=== PATIENT | male | born 1965 | race African-American/Black ===

== ENCOUNTER 2019-09-26 06:20 | Outpatient (CLI) | payer MEDICARE, OTHER ==
[2019-09-26 14:02] LABS: Mean Corpuscular HGB CONC 33.4 g/dL (32.0-36.0); Mean Corpuscular Hemoglobin 29.9 pg (27.0-31.0); Mean Corpuscular Volume 89.6 fL (78.0-98.0); Mean Platelet Volume 8.2 fL (7.4-10.4); Platelet Count 357 thou/uL (130-400); RBC Distribution Width 12.2 % (11.5-14.5); Red Blood Cell (RBC) Count 5.01 mill/uL (4.70-6.10); White Blood Cell (WBC) Count 5.7 thou/uL (4.8-10.8)
[2019-09-26 14:24] LABS: Anion Gap 12 mmol/L (10-20); BUN (Urea Nitrogen) 11 mg/dL (8.4-25.7); Calc. Creatinine Clearance 0 mL/min (70-130); Calcium 9.3 mg/dL (7.8-10.44); Carbon Dioxide 24 mmol/L (22-29); Chloride 107 mmol/L (98-107); Estimated GFR-MDRD 90; Glucose 147 mg/dL (70-105); Potassium 4.2 mmol/L (3.5-5.1); Sodium 139 mmol/L (136-145)
[2019-09-27 14:39] LABS: SARS-CoV-2 MS2 Positive; SARS-CoV-2 N Gene Negative; SARS-CoV-2 S Gene Negative; SARS-CoV-2 orf1ab Negative
== END 2019-09-26 06:21 | disposition home or self-care (01) ==
LOC: LABBT 06:20
PROVIDERS: ATTEND Neurological Surgery
DX: Z01.818 Encounter for other preprocedural examination (principal); Z11.59 Encounter for screening for other viral diseases; M48.062 Spinal stenosis, lumbar region with neurogenic claudication
CPT/HCPCS: 80048; 85027; 93005; U0003; 87635; 93010

== ENCOUNTER 2019-09-26 11:30 | Inpatient (IN) | payer MEDICARE, OTHER ==
[2019-09-24 11:18] VITALS: BMI 36.6
[2019-10-01] MEDS ORDERED: Fentanyl 100 MCG/2 ML VIAL ONE ×4 (08:04→12:25)
[2019-10-01] MEDS ORDERED: Midazolam HCl 2 mg/2 ml Vial ONE (08:05)
[2019-10-01] MEDS ORDERED: Lidocaine 1% PF 5 ML VIAL ONE (09:48)
[2019-10-01] MEDS ORDERED: Glycopyrrolate 0.2 MG/ML 5 ML SYRINGE ONE (09:48)
[2019-10-01] MEDS ORDERED: EPHEDRINE 25 MG/5 ML SYRINGE ONE (09:48)
[2019-10-01] MEDS ORDERED: Dexamethasone 20 MG/5 ML VIAL ONE (09:48)
[2019-10-01] MEDS ORDERED: Ondansetron PF 4 MG/2 ML Vial ONE (09:48)
[2019-10-01] MEDS ORDERED: Rocuronium Bromide 10 MG/ML (10ML VIAL) ONE (09:48)
[2019-10-01] MEDS ORDERED: PROPOFOL 200 MG/20 ML VIAL ONE (09:48)
[2019-10-01] MEDS ORDERED: Promethazine HCl 25 MG/ML VIAL SLOW IVP PRN (11:31)
[2019-10-01] MEDS ORDERED: PACU-Morphine 4MG/ML VIAL SLOW IVP PRN (11:31)
[2019-10-01] MEDS ORDERED: Promethazine HCl 25 MG/ML VIAL IM PRN ×2 (11:31→14:32)
[2019-10-01] MEDS ORDERED: Morphine Sulfate 2 MG/ML SYRINGE SLOW IVP PRN (11:31)
[2019-10-01] MEDS ORDERED: HYDROmorphone 2 MG/ML VIAL SLOW IVP PRN (11:31)
[2019-10-01] MEDS ORDERED: Ondansetron HCl/PF 4 MG/2 ML Vial IVP PRN (11:31)
--- NOTE | 2019-10-01 11:56 | OP ---
DATE OF PROCEDURE: 10/01/2019 RESORT HOST: Steffanie Ramirez PA-C PROCEDURES PERFORMED: 1. Removal of hardware L4 through S1. 2. Exploration of spinal fusion L4 through S1. 3. Lumbar laminectomy, L3-4. 4. Posterolateral arthrodesis, L3-4. 5. Pedicle screw instrumentation. 6. Demineralized bone matrix. 7. Local morselized autograft, L3-4. DESCRIPTION OF PROCEDURE: After the patient was brought and intubated, he was rolled in a prone position on gel-filled chest rolls. The previous incision was reopened and extended superiorly exposing L3 through the sacrum. We removed the previous nuts and rods from L4 through S1. We explored the spinal fusion and appeared to be solid. We next performed complete L4, inferior L3 laminectomies completely decompressing L3-4. Once complete decompression was secured, pedicle screws were placed at L3 bilaterally and secured to pre-existing screws at L4 using a anthony. These were connected by nuts, which were final tightened. The wound was extensively irrigated and MAC hemostasis was secured. A combination of demineralized bone matrix and local morselized autograft was laid over the lamina on posterolateral surfaces for the purpose of arthrodesis. Vancomycin powder was applied and the wound was closed in anatomic layers over drain. Job ID: [id number]
[2019-10-01] MEDS ORDERED: diphenhydrAMINE 25 MG CAP PO PRN (14:32)
[2019-10-01] MEDS ORDERED: tiZANidine HCl 4 MG TAB PO PRN (14:32)
[2019-10-01] MEDS ORDERED: Morphine 2 MG/ML VIAL SLOW IVP PRN (14:32)
[2019-10-01] MEDS ORDERED: Mag-Al 1200 mg/1200 mg/30 ML UDCUP PO PRN (14:32)
[2019-10-01] MEDS ORDERED: Promethazine HCl 12.5 MG SUPP PR PRN (14:32)
[2019-10-01] MEDS ORDERED: Milk Of Magnesia 30 ML UDCUP PO PRN (14:32)
[2019-10-01] MEDS ORDERED: Ondansetron PF 4 MG/2 ML Vial IM PRN (14:32)
[2019-10-01] MEDS ORDERED: diphenhydrAMINE 50 MG/ML VIAL IVP PRN (14:32)
[2019-10-01] MEDS ORDERED: Promethazine 25 MG TAB PO PRN (14:32)
[2019-10-01] MEDS ORDERED: Methyl Salicylate/Menthol 85 GM TUBE TOP PRN (14:43)
[2019-10-01] MEDS: oxyCODONE/Acetaminophen 5 mg/325 mg Tablet PO PRN (15:00)
--- NOTE | 2019-10-01 15:25 | PDOC.HOSPP ---
- Subjective Encounter Date: 10/01/19 Encounter Time: 15:25 Subjective: Patient seen and examined for med mngt. No new complaints. No overnight events - Objective Vital Signs & Weight: Weight Weight 270 lb Hospitalist ROS - Medication Medications: Active Medications Generic Name Dose Route Start Last Admin Trade Name Freq PRN Reason Stop Dose Admin Oxycodone/Acetaminophen 1 tab 10/01/19 14:35 10/01/19 15:00 Percocet 5/325 PO 1 tab Q8H PRN Administration Pain
--- NOTE | 2019-10-01 15:31 | PDOC.HHP ---
Hospitalist HPI - History of Present Illness Consult for medical mngt History of Present Illness: Dustin Isaacs is a 54 year old male underwent lumbar surgery earlier today. Hospitatlist team is being consulted for medical management on his current conditions. He rates his back pain as 7/10 and his neck pain as 5/10. He says his lower back pain and neck pain started in early 1999. He attributes the lower back pain and neck pain from his rigorous training. Reports no SOB, palpitations, wheezing and chest pain. The patient has no allergies to medications. The patient does not drink, does not smoke and does not use illicit drugs. He states he exercises on a regular basis and has a fair diet. Hospitalist ROS - Review of Systems Constitutional: reports: weakness. denies: fever, chills, sweats, malaise ENT: denies: ear pain, ear discharge, nose pain, nose discharge, nose congestion , mouth pain, mouth swelling, throat pain, throat swelling, other Respiratory: denies: cough, dry, shortness of breath, hemoptysis, SOB with excertion, pleuritic pain, sputum, wheezing, other Cardiovascular: denies: chest pain, palpitations, orthopnea, paroxysmal noc. dyspnea, edema, light headedness, other Gastrointestinal: denies: nausea, vomiting, abdominal pain, diarrhea, constipation, melena, hematochezia, other Musculoskeletal: reports: neck pain, back pain. denies: shoulder pain, arm pain , hand pain, leg pain, foot pain Skin: denies: rash, lesions, sorin, bruising, other Neurological: denies: weakness, numbness, incoordination, change in speech, confusion, seizures, other All other systems reviewed; all pertinent +/- noted in HPI/Subj - Medication Medications: Active Medications Generic Name Dose Route Start Last Admin Trade Name Freq PRN Reason Stop Dose Admin Oxycodone/Acetaminophen 1 tab 10/01/19 14:35 10/01/19 15:00 Percocet 5/325 PO 1 tab Q8H PRN Administration Pain Ambulatory Orders Gabapentin 800 mg PO QID 09/24/19 Propranolol HCl [Inderal LA] 60 mg PO DAILY 09/24/19 Other home meds reviewed Hospitalist History - Past Medical History Cardiac: reports: HTN Psych: reports: Other (PTSD diagnosed in 2014) - Exam General Appearance: awake alert Eye: PERRL ENT: normocephalic atraumatic, no oropharyngeal lesions, moist mucosa Neck: supple, symmetric, no JVD, no thyromegaly, no lymphadenopathy, no carotid bruit Heart: RRR, no murmur, no gallops, no rubs, normal peripheral pulses Respiratory: CTAB, no wheezes, no rales, no ronchi, normal chest expansion, no tachypnea, normal percussion Gastrointestinal: soft, non-tender, non-distended, normal bowel sounds, no palpable masses, no hepatomegaly, no splenomegaly, no bruit, no guarding, no rigidity Extremities: no cyanosis, no clubbing, no edema Skin: normal turgor, no lesions, no rashes Psychiatric: normal affect, normal behavior, A&O x 3, oriented to person, oriented to place, oriented to time Hospitalist Results - Labs Lab results: Laboratory Tests 09/26/19 09/26/19 09/26/19 11:31 11:31 11:31 WBC 5.7 Hgb 15.0 Hct 44.9 Plt Count 357 Sodium 139 Potassium 4.2 Chloride 107 BUN 11 Creatinine 1.04 COVID-19 PCR Not Detected - EKG Interpretation EKG: SR (Reviewed by me) Hospitalist H&P A/P - Plan Plan: HTN Chronic pain syndrome CKD 2 Anxiety/PTSD GERD Obesity BMI 36.6 KAILEY on CPAP PLAN: Resume Inderal Resume Zoloft Cont Remeron Cont Gabapentin Resume H2 blockers Pain control PT/OT DVT prophylaxis IS Thank you for this consultation. Will follow.
[2019-10-01] MEDS: Morphine 4 MG/ML VIAL SLOW IVP PRN ×2 (15:42→18:26)
[2019-10-01] MEDS: Sodium Chloride 0.9% 1,000 ML IV SCH (18:13)
[2019-10-01] MEDS: Gabapentin 400 MG CAP PO SCH ×2 (18:17→21:00)
[2019-10-01] MEDS: CEFAZOLIN 2 GM in Premix Bag 1 BAG IVPB SCH (18:17)
[2019-10-01] MEDS: Cyproheptadine 4 MG TAB PO SCH (21:00)
[2019-10-01] MEDS: Fish Oil 1,000 MG CAP PO SCH (21:01)
[2019-10-01] MEDS: Famotidine 20 MG TAB PO SCH (21:01)
[2019-10-01] MEDS: Mirtazapine 30 MG TAB PO SCH (21:01)
[2019-10-01] MEDS: Cholecalciferol 1,000 UNITS (25 MCG) TAB PO SCH (21:01)
[2019-10-02] MEDS: CEFAZOLIN 2 GM in Premix Bag 1 BAG IVPB SCH ×3 (01:39→18:39)
[2019-10-02] MEDS: oxyCODONE/Acetaminophen 5 mg/325 mg Tablet PO PRN ×2 (03:23→12:37)
[2019-10-02] MEDS: Sodium Chloride 0.9% 1,000 ML IV SCH ×2 (03:25→18:39)
[2019-10-02] MEDS: Tamsulosin HCl 0.4 MG CAP PO SCH (05:35)
[2019-10-02] MEDS: Cyclobenzaprine 10 MG TAB PO PRN ×2 (05:43→15:27)
[2019-10-02] MEDS: Morphine 4 MG/ML VIAL SLOW IVP PRN ×6 (06:23→20:32)
--- NOTE | 2019-10-02 06:26 | PRG ---
DATE OF SERVICE: 10/02/2019 SUBJECTIVE: The patient is a 54-year-old male, postoperative day #1, status post removal of hardware and extension of his lumbar fusion to L3-L4. Following the surgery, he was transitioned to the Med/Surg floor, where his pain has been well controlled with Percocet. He is only requiring occasionally p.r.n. push morphine. He did have a VINI drain placed intraoperatively, which had approximately 300 mL out over the first night. OBJECTIVE: On exam this morning, he is sitting up. He is in no acute distress. His vital signs are stable. He continues to have weakness in the lower extremities, but this is not unchanged from his baseline. He is not having any new bladder issues. Voiding appropriately. PLAN: Overall, the patient is doing quite well. We will continue to monitor his VINI drain and depending on its output, we may be able to remove and discontinue in the next day or two. We will continue to work on pain control and mobilization. Job ID: [id number]
[2019-10-02] MEDS: Famotidine 20 MG TAB PO SCH ×2 (09:54→20:30)
[2019-10-02] MEDS: Gabapentin 400 MG CAP PO SCH ×4 (09:55→20:30)
[2019-10-02] MEDS: Propranolol HCl LA 60 MG CAP PO SCH (09:55)
[2019-10-02] MEDS: Cholecalciferol 1,000 UNITS (25 MCG) TAB PO SCH ×2 (09:55→20:32)
[2019-10-02] MEDS: Fish Oil 1,000 MG CAP PO SCH ×2 (09:55→20:32)
[2019-10-02] MEDS: Calcium Carbonate 500 MG TAB PO SCH (09:55)
--- NOTE | 2019-10-02 16:18 | PDOC.HOSPP ---
- Subjective Encounter Date: 10/02/19 Encounter Time: 15:15 Subjective: Patient seen and examined for med mngt. Pain controlled. No CP/SOB. No new complaints. No overnight events - Objective Vital Signs & Weight: Vital Signs (12 hours) Temp Pulse Resp BP Pulse Ox 10/02/19 15:15 97.7 F 71 18 130/79 99 10/02/19 10:42 97.8 F 72 18 131/80 98 10/02/19 07:38 97.8 F 84 18 116/69 96 Weight Weight 270 lb I&O: 10/01/19 10/02/19 10/03/19 06:59 06:59 06:59 Intake Total 4970 Output Total 3025 Balance 1945 Hospitalist ROS - Review of Systems Respiratory: denies: cough, dry, shortness of breath, hemoptysis, SOB with excertion, pleuritic pain, sputum, wheezing, other Cardiovascular: denies: chest pain, palpitations, orthopnea, paroxysmal noc. dyspnea, edema, light headedness, other Gastrointestinal: denies: nausea, vomiting, abdominal pain, diarrhea, constipation, melena, hematochezia, other - Medication Medications: Active Medications Generic Name Dose Route Start Last Admin Trade Name Freq PRN Reason Stop Dose Admin Calcium Carbonate 500 mg 10/02/19 09:00 10/02/19 09:55 Oscal-500 PO 500 mg DAILY VALERIE Administration Cholecalciferol 2,000 units 10/01/19 21:00 10/02/19 09:55 Vitamin D3 PO 2,000 units BID VALERIE Administration Cyclobenzaprine HCl 10 mg 10/01/19 14:42 10/02/19 15:27 Flexeril PO 10 mg TIDPRN PRN Administration Muscle Spasm Cyproheptadine HCl 4 mg 10/01/19 21:00 10/01/19 21:00 Periactin PO 4 mg HS VALERIE Administration Famotidine 20 mg 10/01/19 21:00 10/02/19 09:54 Pepcid PO 20 mg BID VALERIE Administration Fish Oil 1,000 mg 10/01/19 21:00 10/02/19 09:55 Fish Oil PO 1,000 mg BID VALERIE Administration Gabapentin 800 mg 10/01/19 17:00 10/02/19 12:37 Neurontin PO 800 mg QID VALERIE Administration Sodium Chloride 1,000 mls @ 75 mls/hr 10/01/19 14:32 10/02/19 03:25 Normal Saline 0.9% IV Not Given .[id number] VALERIE Cefazolin Sodium/Dextrose 2 gm 50 mls @ 100 mls/hr 10/01/19 18:00 10/02/19 09 :54 / Device IVPB 50 mls 0200,1000,1800 VALERIE Administration Mirtazapine 45 mg 10/01/19 21:00 10/01/19 21:01 Remeron PO 45 mg HS VALERIE Administration Morphine Sulfate 4 mg 10/01/19 14:32 10/02/19 15:27 Morphine SLOW IVP 4 mg Q1H PRN Administration SEVERE BREAKTHROUGH PAIN Oxycodone/Acetaminophen 1 tab 10/01/19 14:35 10/02/19 12:37 Percocet 5/325 PO 1 tab Q8H PRN Administration Pain Propranolol HCl 60 mg 10/02/19 09:00 10/02/19 09:55 Inderal La PO 60 mg DAILY VALERIE Administration Sertraline HCl 200 mg 10/02/19 09:00 10/02/19 10:00 Zoloft PO 200 mg DAILY VALERIE Administration Sodium Chloride 10 ml 10/01/19 14:32 10/02/19 06:24 Flush - Normal Saline IVF 10 ml PRN PRN Administration Saline Flush Tamsulosin HCl 0.4 mg 10/02/19 06:00 10/02/19 05:35 Flomax PO 0.4 mg 0600 VALERIE Administration - Exam General Appearance: NAD Neck: supple, no JVD Heart: RRR, no gallops Respiratory: no wheezes, no ronchi Gastrointestinal: non-tender, normal bowel sounds Extremities: no edema Hosp A/P - Plan DVT proph w/SCDs HTN -on Inderal Chronic pain syndrome CKD 2 Anxiety/PTSD GERD Obesity BMI 36.6 KAILEY on CPAP PLAN: Cont Inderal Cont Zoloft/Remeron Cont Gabapentin Cont H2 blockers PT/OT/DVT prophylaxis/IS
[2019-10-02] MEDS: Mirtazapine 30 MG TAB PO SCH (20:31)
[2019-10-02] MEDS: Cyproheptadine 4 MG TAB PO SCH (20:32)
[2019-10-03] MEDS: CEFAZOLIN 2 GM in Premix Bag 1 BAG IVPB SCH ×3 (02:35→18:13)
[2019-10-03] MEDS: Morphine 4 MG/ML VIAL SLOW IVP PRN ×3 (02:51→09:37)
[2019-10-03] MEDS: oxyCODONE/Acetaminophen 5 mg/325 mg Tablet PO PRN ×3 (03:27→21:26)
[2019-10-03] MEDS: Tamsulosin HCl 0.4 MG CAP PO SCH (05:27)
[2019-10-03] MEDS: Sodium Chloride 0.9% 1,000 ML IV SCH ×2 (06:52→19:45)
--- NOTE | 2019-10-03 07:08 | PRG ---
DATE OF SERVICE: 10/03/2019 The patient is now postoperative day #2, status post extension of his lumbar fusion. He was able to work with Physical Therapy some yesterday, but he is quite sore after working with them. His VINI drain output is trending downward and had approximately 40 mL out overnight. He is complaining of some increased soreness in the right proximal leg, but he reports this is not too severe, and he has no change in his motor function. On exam, he is in no acute distress. His vital signs are stable. His incisional dressing is clean and dry. He has weakness to the lower extremities at baseline, but this appears unchanged. Overall, the patient does appear to be slowly mobilizing more and his pain is somewhat improved. We will leave his VINI drain and continue to work on pain control and mobilization. I anticipate he will be able to discharge home tomorrow. Job ID: [id number]
--- NOTE | 2019-10-03 08:06 | PRG ---
DATE OF SERVICE: 10/03/2019 Mr. Isaacs is postoperative day 2. Follows extensive lumbar revision. He is doing reasonably well. Pain control has been an issue, particularly with activity. A drain output has also been an issue. We will continue to mobilize and wean the drain when able. Job ID: [id number]
[2019-10-03] MEDS: Cholecalciferol 1,000 UNITS (25 MCG) TAB PO SCH ×2 (09:23→21:27)
[2019-10-03] MEDS: Gabapentin 400 MG CAP PO SCH ×4 (09:24→21:27)
[2019-10-03] MEDS: Fish Oil 1,000 MG CAP PO SCH ×2 (09:24→21:27)
[2019-10-03] MEDS: Calcium Carbonate 500 MG TAB PO SCH (09:24)
[2019-10-03] MEDS: Famotidine 20 MG TAB PO SCH ×2 (09:24→21:27)
[2019-10-03] MEDS: Propranolol HCl LA 60 MG CAP PO SCH (09:37)
[2019-10-03] MEDS: Cyproheptadine 4 MG TAB PO SCH (21:27)
[2019-10-03] MEDS: Mirtazapine 30 MG TAB PO SCH (21:29)
[2019-10-04] MEDS: CEFAZOLIN 2 GM in Premix Bag 1 BAG IVPB SCH ×2 (01:26→09:57)
[2019-10-04] MEDS: Cyclobenzaprine 10 MG TAB PO PRN (03:24)
[2019-10-04] MEDS: oxyCODONE/Acetaminophen 5 mg/325 mg Tablet PO PRN ×2 (05:20→14:26)
[2019-10-04] MEDS: Tamsulosin HCl 0.4 MG CAP PO SCH (05:20)
[2019-10-04] MEDS: Sodium Chloride 0.9% 1,000 ML IV SCH (09:41)
[2019-10-04] MEDS: Famotidine 20 MG TAB PO SCH (09:54)
[2019-10-04] MEDS: Propranolol HCl LA 60 MG CAP PO SCH (09:54)
[2019-10-04] MEDS: Calcium Carbonate 500 MG TAB PO SCH (09:55)
[2019-10-04] MEDS: Fish Oil 1,000 MG CAP PO SCH (09:55)
[2019-10-04] MEDS: Gabapentin 400 MG CAP PO SCH ×2 (09:55→14:26)
[2019-10-04] MEDS: Cholecalciferol 1,000 UNITS (25 MCG) TAB PO SCH (09:55)
[2019-10-04 15:50] VITALS: BP 132/78; TEMP 98.7
--- NOTE | 2019-10-05 10:30 | DIS ---
DATE OF ADMISSION: 10/01/2019 DATE OF DISCHARGE: 10/04/2019 HOSPITAL COURSE: The patient is a 54-year-old male, recently evaluated in our office for progressive back and claudicatory leg symptoms. He was found to have increased stenosis above his prior fusion at L3-L4. He underwent removal of hardware and extension of his lumbar fusion on 10/01/2019. Following the surgery, he was transitioned to the Med/Surg floor, where his pain has been well controlled with p.o. medications, he is tolerating a regular diet, and he is voiding appropriately. He is ambulating at his baseline as he has significant underlying cervical myelopathy and primarily uses the motorized wheelchair and transfers with assistance. He did have a VINI drain placed intraoperatively, his output trended down nicely and was removed on postoperative day #3. OBJECTIVE: On postoperative day #3, the patient was awake, alert, no acute distress. He has free active range of motion of the upper extremities. No focal motor weakness in the lower extremities. He has chronic weakness, which is unchanged from his baseline. Sensation is intact throughout. Incisional dressing is dry. PLAN: We will dismiss to home. I have discussed home care precautions. Pain Management is managing his postoperative pain medications. I will follow up in 2 weeks. Job ID: [id number]
== END 2019-10-04 17:10 | disposition home or self-care (01) | DRG 460 ==
LOC: SURG A 10-01 06:51
PROVIDERS: ADMIT Neurological Surgery; ATTEND Neurological Surgery
PROC: 0SG0071 Fusion of Lumbar Vertebral Joint with Autologous Tissue Substitute, Posterior Approach, Posterior Column, Open Approach (ICD-10-PCS; principal; 2019-10-01)
PROC: 0SP004Z Removal of Internal Fixation Device from Lumbar Vertebral Joint, Open Approach (ICD-10-PCS; 2019-10-01)
DX: M48.062 Spinal stenosis, lumbar region with neurogenic claudication (principal); M19.90 Unspecified osteoarthritis, unspecified site; F17.210 Nicotine dependence, cigarettes, uncomplicated; F43.10 Post-traumatic stress disorder, unspecified; G89.4 Chronic pain syndrome; I12.9 Hypertensive chronic kidney disease with stage 1 through stage 4 chronic kidney disease, or unspecified chronic kidney disease; N18.2 Chronic kidney disease, stage 2 (mild); F41.9 Anxiety disorder, unspecified; G47.33 Obstructive sleep apnea (adult) (pediatric); E66.9 Obesity, unspecified; K21.9 Gastro-esophageal reflux disease without esophagitis; Z99.89 Dependence on other enabling machines and devices; Z68.36 Body mass index [BMI] 36.0-36.9, adult; Z79.899 Other long term (current) drug therapy
CPT/HCPCS: 76000; C1713; C1768; J0690; J1100; J2250; J2270; J2405; J2704; J3010; J3370